=== PATIENT | male | born 1945 ===

== ENCOUNTER → 2018-08-25 | Outpatient (CLI) | payer MEDICARE, OTHER ==
[~2018-08-25] MED LIST: AMLO10 PO; HYDRA25 PO; LOSA50 PO; MOTION RELIEF25 MG PO
== END | disposition home or self-care (01) ==
LOC: PLD 09:55 → LAB SHORT 09:55
DX: L82.1 Other seborrheic keratosis (principal)
CPT/HCPCS: 88305

== ENCOUNTER → 2018-09-08 | Outpatient (CLI) | payer MEDICARE, OTHER | END | disposition home or self-care (01) | LOC: PLD 11:58 → LAB SHORT 11:58 | DX: D48.5 Neoplasm of uncertain behavior of skin (principal) | CPT/HCPCS: 88305 ==

== ENCOUNTER → 2021-06-09 | Outpatient (CLI) | payer MEDICARE, OTHER | END | disposition home or self-care (01) | LOC: LAB 11:53 → LAB SHORT 11:53 | DX: D48.5 Neoplasm of uncertain behavior of skin (principal) | CPT/HCPCS: 88305 ==